=== PATIENT | female | born 1940 | race Hispanic/Latino ===

== ENCOUNTER 2017-05-13 03:13 | Inpatient (IN) | payer MEDICARE, MEDICAID ==
[2017-05-13 04:34] LABS: #Eosinphils 0.1 thou/uL (0.0-0.7); #Monocytes 0.4 thou/uL (0.11-0.59); #Neutrophils 4.5 thou/uL (1.40-6.50); %Basophils 0.5 % (0.0-1.0); %Eosinophils 1.7 % (0.0-10.0); %Lymphocytes 28.1 % (21.0-51.0); %Monocytes 5.2 % (0.0-10.0); %Neutrophils 64.6 % (42.0-75.0); Hemoglobin 12.7 g/dL (12.0-16.0); Mean Corpuscular HGB CONC 34.8 g/dL (32.0-36.0); Mean Corpuscular Volume 89.1 fl (81.0-99.0); Mean Platelet Volume 6.8 fL (7.4-10.4); Platelet Count 253 thou/uL (130-400); RBC Distribution Width 11.9 % (11.5-14.5)
[2017-05-13 04:55] LABS: PTT 35.3 SEC (22.9-36.1)
[2017-05-13 04:56] LABS: ALT (SGPT) 11 U/L (8-55); AST (SGOT) 12 U/L (5-34); Albumin 4.2 g/dL (3.4-4.8); Alkaline Phosphatase 121 U/L (40-150); Anion Gap 14 mmol/L (10-20); BUN (Urea Nitrogen) 22 mg/dL (9.8-20.1); Bilirubin, Total 0.3 mg/dL (0.2-1.2); Calc. Creatinine Clearance 0 mL/min (70-130); Calcium 9.7 mg/dL (7.8-10.44); Carbon Dioxide 23 mmol/L (23-31); Chloride 107 mmol/L (98-107); Estimated GFR-MDRD 51; Globulin 2.6 g/dL (2.4-3.5); Glucose 179 mg/dL (83-110); Lipase 19 U/L (8-78); Potassium 3.5 mmol/L (3.5-5.1); Protein, Total 6.8 g/dL (6.0-8.3); Prothrombin Time 13.1 SEC (12.0-14.7); Sodium 140 mmol/L (136-145)
[2017-05-13 05:00] LABS: CKMB 1.3 ng/mL (0-6.6); Troponin I Less than 0.010 ng/mL (< 0.028)
[2017-05-13 05:02] LABS: D-Dimer Test Less than 0.27 *mcg/mL (0.27-0.43)
[2017-05-13 07:32] LABS: Troponin I Less than 0.010 ng/mL (< 0.028)
[2017-05-13] MEDS ORDERED: Senokot 8.6 MG TAB PO PRN (08:21)
[2017-05-13] MEDS ORDERED: Ondansetron ODT 4 MG TAB PO PRN (08:21)
[2017-05-13] MEDS ORDERED: Acetaminophen 325 MG TAB PO PRN (08:21)
[2017-05-13] MEDS ORDERED: Ondansetron HCl/PF 4 MG/2 ML Vial IVP PRN (08:21)
[2017-05-13] MEDS ORDERED: Nitroglycerin 0.4 MG TAB (25 Tab Bottle) PO PRN (08:21)
[2017-05-13] MEDS ORDERED: Dextrose 50% Abboject 50 ML SYRINGE SLOW IVP PRN (08:24)
[2017-05-13] MEDS ORDERED: Dextrose 5% in Water 1,000 ML IV PRN (08:24)
[2017-05-13] MEDS ORDERED: Insulin Regular 300 UNITS/3 ML VIAL SC PRN ×2 (08:24)
[2017-05-13] MEDS ORDERED: Famotidine 20 MG TAB PO SCH ×2 (09:00)
[2017-05-13] MEDS ORDERED: Aggrenox 200-25mg CAP PO SCH (09:00)
[2017-05-13] MEDS ORDERED: Amlodipine 10 MG TAB PO SCH (09:00)
[2017-05-13] MEDS ORDERED: Lisinopril 20 MG TAB PO SCH (09:00)
--- NOTE | 2017-05-13 09:06 | RAD ---
RADIOGRAPH OF CHEST FRONTAL VIEW: COMPARISON: 01/28/17. FINDINGS: No lobar consolidation, effusion, or discrete pneumothorax. Cardiac silhouette is accentuated by the portable technique. Monitor leads overlie the chest. Mild prominence of the perihilar vasculature, bilaterally. IMPRESSION: 1. No lobar consolidation. 2. Mild prominence of the pulmonary vasculature, centrally, which could relate to a slight area of e leonel. Correlate clinically. POS: MIA
--- NOTE | 2017-05-13 09:07 | HP ---
DATE OF ADMISSION: 05/13/2017 PRIMARY CARE PHYSICIAN: Bartolome Marrero M.D. REASON FOR COMPLAINT: Chest discomfort. CODE STATUS: FULL CODE. SURROGATE DECISION-MAKER: Patient makes her own decisions with the help of family. HISTORY OF PRESENT ILLNESS: The patient is a 77-year-old female with hypertension, diabetes mellitus type 2, dyslipidemia, and CVA in 01/2017 on Aggrenox presented to the emergency room with c hest discomfort that started last night. The patient is unable to describe her chest pain clearly. Her chest pain resolved after aspirin and nitroglycerin. It was substernal with radiation to her rig ht arm. She denies any diaphoresis, nausea, vomiting, palpitations or syncope. She denies recent im mobilization or travel. No fever, chills, dyspepsia, cough, shortness of breath, wheezing, or sick c ontacts reported. She is compliant with her medications; however, she is unable to recall of any of her home meds. In the emergency room, initial vital signs showed temperature 99.4, respirations 20, pulse rate of 90 with blood pressure 147/58 with O2 saturation 98% on room air. Her EKG showed sinus rhythm without significant ST-T wave changes. She is chest pain free at this time. PAST MEDICAL HISTORY: 1. 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 2. Hypertension. 3. Dyslipidemia. 4. Diabetes mellitus type 2. 5. Degenerative joint disease. PAST SURGICAL HISTORY: 1. Tubal ligation. 2. Cataract surgeries. ALLERGIES: Patient denies any drug allergies. CURRENT HOME MEDICATIONS: Patient is unable to recall any of her home medications. She was discharg ed last admission on Aggrenox, lisinopril, pravastatin, and amlodipine. SOCIAL HISTORY: Patient currently lives at home with her family. No smoking, alcohol or drug use. FAMILY HISTORY: Positive for diabetes and hypertension. REVIEW OF SYSTEMS: The following complete review of systems was negative, unless otherwise mentioned in the HPI or below: Constitutional: Weight loss or gain, ability to conduct usual activities. Skin: Rash, itching. Eyes: Double vision, pain. ENT/Mouth: Nose bleeding, neck stiffness, pain, tenderness. Cardiovascular: Palpitations, dyspnea on exertion, orthopnea. Respiratory: Shortness of breath, wheezing, cough, hemoptysis, fever or night sweats. Gastrointestinal: Poor appetite, abdominal pain, heartburn, nausea, vomiting, constipation, or diarr hea. Genitourinary: Urgency, frequency, dysuria, nocturia. Musculoskeletal: Pain, swelling. Neurologic/Psychiatric: Anxiety, depression. Allergy/Immunologic: Skin rash, bleeding tendency. PHYSICAL EXAMINATION: VITAL SIGNS: As discussed above. GENERAL: A 77-year-old female in no apparent distress, appears comfortable. Denies any chest pain. HEENT: Head is atraumatic, normocephalic. Sclerae are anicteric. Moist mucous membrane, no oral le sudha. NECK: Supple, no JVD appreciated. No carotid bruit. LUNGS: Clear to auscultation bilaterally. No wheezing or rales. HEART: S1 and S2 present. Regular rate and rhythm. No murmur, rubs or gallops. No reproducible ch est wall tenderness. EXTREMITIES: No edema or calf tenderness. NEUROLOGIC: At baseline, no new focal deficits. PSYCHIATRY: Alert, awake, oriented x3. SKIN: Warm and dry. LYMPH NODES: No palpable lymph nodes in the neck. PERIPHERAL VASCULAR: Radial pulses palpable bilaterally. MUSCULOSKELETAL: No joint swelling or tenderness. SKIN: Warm and dry. LYMPH NODES: No palpable lymph nodes in the neck. LABORATORY FINDINGS: 1. D-dimer was negative. 2. BUN 22, creatinine 1.04 with potassium 3.5. 3. WBC 7.0 with hemoglobin 12.7. 4. EKG by my review as discussed above. 5. Chest x-ray by my review was negative for infiltrate. IMPRESSION: 1. Chest discomfort. Patient has multiple risk factors for coronary artery disease including hypert ension, diabetes mellitus type 2, and hyperlipidemia. She also had recent cardiovascular accident. She is currently on Aggrenox twice a day. Her chest discomfort resolved after nitroglycerin and aspi rin. We will schedule her Cardiolite stress test. Due to degenerative joint disease, we will schedu le her chemical stress test. D-dimer was negative. 2. Hypertension. We will hold amlodipine as well as lisinopril for now. Her last systolic blood pr essure was in 120s. 3. Hyperlipidemia. We will continue statins. 4. Diabetes mellitus type 2. Hold glimepiride. We will start her on sliding scale with Accu-Cheks q.6 hourly. 5. History of cardiovascular accident in 01/2017, we will continue Aggrenox. 6. Chronic kidney disease stage 2 with slight worsening of her creatinine. We will resume lisinopri l, probably tomorrow. 7. Degenerative joint disease. 8. Disposition: Probably later today after the stress test. Plan of care was discussed with the patient in detail. She stated understanding.
[2017-05-13 10:35] LABS: Troponin I Less than 0.010 ng/mL (< 0.028)
--- NOTE | 2017-05-13 15:27 | EKG ---
Test Reason : Blood Pressure : / mmHG Vent. Rate : 080 BPM Atrial Rate : 080 BPM P-R Int : 130 ms QRS Dur : 072 ms QT Int : 394 ms P-R-T Axes : 058 032 059 degrees QTc Int : 454 ms Normal sinus rhythm Normal ECG Confirmed by LETA LANDON M.D. ([id number]), managing editor NOAM NEUMANN ([id number] on 05/13/2017 3:26:30 PM Referred By: Confirmed By:LETA LANDON M.D.
--- NOTE | 2017-05-13 15:38 | NM ---
MYOCARDIAL PERFUSION EVALUATION. CLINICAL HISTORY: Chest pain. RADIOPHARMACEUTICAL: 27.2 mCi and 9 mCi Technetium 99m sestamibi IV administered at stress and rest. Reference stress EKG portion of the exam through the division of cardiology for further details. FINDINGS: There is no definite fixed or reversible defect of the left ventricular elliott to confirm ischemia or scar or significance. Gated imaging reveals wall motion and contractility. LVEF is calculated at gr eater than 70%. IMPRESSION: 1. No scintigraphic evidence to confirm significant ischemia or scar. 2. Normal left ventricular systolic function. POS: FABIAN
--- NOTE | 2017-05-13 16:13 | DIS ---
DATE OF DISCHARGE: 05/13/2017 DATE OF ADMISSION: 05/13/2017 DISCHARGE DISPOSITION: Home. BRIEF HOSPITAL COURSE: The patient is a 77-year-old female with hypertension, diabetes mellitus type 2, and recent CVA presented to the hospital this morning with chest discomfort. Please refer to the history and physical dictated earlier for further details. The patient was admitted to the telemetry unit with the diagnosis of chest discomfort, rule out acute coronary syndrome. Serial cardiac enzymes were normal. She underwent Cardiolite stress test that w as negative for reversible ischemia. She was advised to follow up with her PCP as outpatient. No ch anges in the medications were made. She was advised to continue all of her home medications includin g Aggrenox. Plan of care was discussed with the patient in detail. She stated understanding. Risk factor modification was emphasized.
[2017-05-13] MEDS ORDERED: ADENOSINE 60 MG/20 ML VIAL ONE (16:40)
[2017-05-13] MEDS ORDERED: Simvastatin 5 MG TAB PO SCH (21:00)
== END 2017-05-13 17:10 | disposition home or self-care (01) | DRG 313 ==
LOC: ERS 03:13 → ERHOLD 05:28
PROVIDERS: ADMIT Internal Medicine; ATTEND Internal Medicine
PROC: 4A02XM4 Measurement of Cardiac Total Activity, External Approach (ICD-10-PCS; principal; 2017-05-13)
DX: R07.9 Chest pain, unspecified (principal); I69.354 Hemiplegia and hemiparesis following cerebral infarction affecting left non-dominant side; E11.9 Type 2 diabetes mellitus without complications; E78.5 Hyperlipidemia, unspecified; I12.9 Hypertensive chronic kidney disease with stage 1 through stage 4 chronic kidney disease, or unspecified chronic kidney disease; N18.2 Chronic kidney disease, stage 2 (mild); M19.90 Unspecified osteoarthritis, unspecified site; Z83.3 Family history of diabetes mellitus; Z82.49 Family history of ischemic heart disease and other diseases of the circulatory system
CPT/HCPCS: 36415; 71045; 78452; 80053; 82553; 83690; 83880; 84484; 85025; 85379; 85610; 85730; 93005; 93017; A9500; J0153

== ENCOUNTER 2017-05-30 14:38 | Emergency (ER) | payer MEDICARE, MEDICAID ==
[2017-05-30 15:38] LABS: #Lymphocytes 0.7 thou/uL (1.20-3.40); #Monocytes 0.4 thou/uL (0.11-0.59); #Neutrophils 3.9 thou/uL (1.40-6.50); %Basophils 0.6 % (0.0-1.0); %Eosinophils 0.1 % (0.0-10.0); %Lymphocytes 13.1 % (21.0-51.0); %Monocytes 7.4 % (0.0-10.0); %Neutrophils 78.7 % (42.0-75.0); Hemoglobin 14.7 g/dL (12.0-16.0); Mean Corpuscular HGB CONC 33.2 g/dL (32.0-36.0); Mean Corpuscular Volume 90.2 fl (81.0-99.0); Mean Platelet Volume 7.1 fL (7.4-10.4); Platelet Count 185 thou/uL (130-400); RBC Distribution Width 11.8 % (11.5-14.5); Red Blood Cell (RBC) Count 4.89 mill/uL (4.20-5.40)
[2017-05-30 16:00] LABS: ALT (SGPT) 14 U/L (8-55); AST (SGOT) 16 U/L (5-34); Albumin 4.4 g/dL (3.4-4.8); Alkaline Phosphatase 103 U/L (40-150); Anion Gap 12 mmol/L (10-20); BUN (Urea Nitrogen) 19 mg/dL (9.8-20.1); Bilirubin, Total 0.4 mg/dL (0.2-1.2); Calc. Creatinine Clearance 0 mL/min (70-130); Calcium 9.2 mg/dL (7.8-10.44); Carbon Dioxide 20 mmol/L (23-31); Chloride 109 mmol/L (98-107); Estimated GFR-MDRD 67; Globulin 3.1 g/dL (2.4-3.5); Glucose 151 mg/dL (83-110); Potassium 3.8 mmol/L (3.5-5.1); Protein, Total 7.5 g/dL (6.0-8.3); Sodium 137 mmol/L (136-145)
[2017-05-30 17:06] LABS: Bilirubin Negative (Negative); Blood, Urine Negative (Negative); Clarity CLEAR (Clear); Glucose, Urine (Dipstick) 500 mg/dL (Negative); Leukocyte Negative (Negative); Nitrite Negative (Negative); Protein, Urine (Dipstick) Negative (Neg-Trace); Specific Gravity, Urine 1.015 (1.002-1.036); Urobilinogen 0.2 mg/dL (0.2-1.0); pH, Urine 5.5 (5.0-9.0)
== END 2017-05-30 17:27 | disposition home or self-care (01) ==
LOC: ERS 14:38
DX: E11.649 Type 2 diabetes mellitus with hypoglycemia without coma (principal); I69.351 Hemiplegia and hemiparesis following cerebral infarction affecting right dominant side; E78.5 Hyperlipidemia, unspecified; I10 Essential (primary) hypertension
CPT/HCPCS: 36415; 36416; 80053; 81003; 85025; 96360; 96361

== ENCOUNTER 2022-12-09 12:27 | Emergency (ER) | payer MEDICAID ==
[~2022-12-09 12:27] MED LIST: Iopamidol-370 76% 500 ML MDV (1 ML CHARGE) ONE
[2022-12-09 13:39] LABS: #Eosinphils 0.1 thou/uL (0.0-0.7); #Monocytes 0.4 thou/uL (0.11-0.59); #Neutrophils 4.3 thou/uL (1.40-6.50); %Basophils 0.3 % (0.0-1.0); %Eosinophils 0.8 % (0.0-10.0); %Lymphocytes 24.1 % (21.0-51.0); %Monocytes 6.9 % (0.0-10.0); %Neutrophils 67.6 % (42.0-75.0); Hemoglobin 13.2 g/dL (12.0-16.0); Mean Corpuscular HGB CONC 33.5 g/dL (32.0-36.0); Mean Corpuscular Hemoglobin 30.7 pg (27.0-31.0); Mean Corpuscular Volume 91.6 fl (78.0-98.0); Mean Platelet Volume 9.4 fL (7.4-10.4); Platelet Count 203 10x3/uL (130-400); White Blood Cell (WBC) Count 6.4 10x3/uL (4.8-10.8)
[2022-12-09 14:03] LABS: ALT (SGPT) 11 U/L (8-55); AST (SGOT) 14 U/L (5-34); Albumin 4.4 g/dL (3.4-4.8); Alkaline Phosphatase 84 U/L (40-110); Anion Gap 13 mmol/L (10-20); BUN (Urea Nitrogen) 21 mg/dL (9.8-20.1); Bilirubin, Total 0.3 mg/dL (0.2-1.2); Calc. Creatinine Clearance 0 mL/min (70-130); Calcium 9.3 mg/dL (7.8-10.44); Carbon Dioxide 23 mmol/L (23-31); Chloride 108 mmol/L (98-107); Estimated GFR 69; Globulin 2.6 g/dL (2.4-3.5); Glucose 114 mg/dL (83-110); Potassium 3.7 mmol/L (3.5-5.1); Sodium 140 mmol/L (136-145)
== END 2022-12-09 15:45 | disposition home or self-care (01) ==
LOC: ERS 12:27
DX: E04.1 Nontoxic single thyroid nodule (principal); E78.00 Pure hypercholesterolemia, unspecified; I10 Essential (primary) hypertension; E11.9 Type 2 diabetes mellitus without complications; Z79.899 Other long term (current) drug therapy; Z79.82 Long term (current) use of aspirin
CPT/HCPCS: 36415; 70492; 71045; 80053; 85025; Q9967

== ENCOUNTER 2023-01-05 07:25 | Day surgery (SDC) | payer OTHER, MEDICAID ==
[2023-01-03 14:38] VITALS: BMI 20.8
[2023-01-05 10:36] LABS: Hematocrit 45.1 % (36.0-47.0)
[2023-01-05 10:59] LABS: Anion Gap 16 mmol/L (10-20); BUN (Urea Nitrogen) 17 mg/dL (9.8-20.1); Calc. Creatinine Clearance 38 mL/min (70-130); Calcium 10.4 mg/dL (7.8-10.44); Carbon Dioxide 22 mmol/L (23-31); Chloride 105 mmol/L (98-107); Estimated GFR 64; Glucose 120 mg/dL (83-110); Potassium 4.2 mmol/L (3.5-5.1); Sodium 139 mmol/L (136-145)
[2023-01-05] MEDS ORDERED: Lidocaine 1% (PF) 30 ML VIAL ONE (11:31)
[2023-01-05] MEDS ORDERED: EPINEPHrine 1 MG/ML AMP ONE (11:31)
[2023-01-05] MEDS ORDERED: fentaNYL PF 100 MCG/2 ML SYRINGE ONE (11:42)
[2023-01-05] MEDS ORDERED: Succinylcholine 200 MG/10 ml SYRINGE FS ONE (12:08)
[2023-01-05] MEDS ORDERED: Lidocaine 1% PF 5 ML VIAL ONE (12:08)
[2023-01-05] MEDS ORDERED: PROPOFOL 200 MG/20 ML VIAL ONE (12:08)
[2023-01-05] MEDS ORDERED: Dexamethasone 20 MG/5 ML VIAL ONE (12:08)
[2023-01-05] MEDS ORDERED: Glycopyrrolate 0.2 MG/ML 5 ML SYRINGE ONE (12:08)
[2023-01-05] MEDS ORDERED: Ondansetron PF 4 MG/2 ML Vial ONE (12:08)
[2023-01-05] MEDS ORDERED: NEOSTIGMINE 3 MG/3 ML SYR 3 MG/3 ML SYRINGE ONE (12:08)
[2023-01-05] MEDS ORDERED: Rocuronium Bromide 10 MG/ML (10ML VIAL) ONE (12:08)
== END 2023-01-05 14:45 | disposition home or self-care (01) ==
LOC: SDC 07:25
PROVIDERS: ATTEND Specialist
PROC: 0GTH0ZZ Resection of Right Thyroid Gland Lobe, Open Approach (ICD-10-PCS; principal; 2023-01-05)
DX: E04.2 Nontoxic multinodular goiter (principal); I10 Essential (primary) hypertension; Z79.899 Other long term (current) drug therapy
CPT/HCPCS: 60220; 80048; 85014; 85018; 93005; C1889; 88307; 93010; J0171; J1100; J2001; J2405; J2704